=== PATIENT | female | born 1995 | race Two or more races ===

== ENCOUNTER 2021-04-05 04:26 | Emergency (ER) | payer OTHER ==
[~2021-04-05] VITALS: Ht 162.6 cm; Wt 54.4 kg
--- NOTE | 2021-04-05 04:36 | NUR ---
PT BIBFD AND PD FROM HOLDING CELL C/O BIZARRE BEHAVIOR AND FACIAL PAIN. PER REPORT, PT STARTED PUNCHING HERSELF ON THE FACE. PT ALERT AND AWAKE, DENIES SI/HI. SAFETY PRECAUTIONS IMPLEMENTED. PT CONNECTED TO THE MONITOR AND POX
--- NOTE | 2021-04-05 04:36 | NUR ---
Note undone in EDM - 04/05/21 at 0444 by ALEJANDRA PATIENT CAME TO THE ER [facility] C/O PSYCHOSIS. PER LAUREL REPORT, PATIENT WAS AT HOME WHEN SHE HAD THROWN A COOKING FERNANDO AT A BOYFRIEND AND THEN PUNCHED HERSELF IN THE FACE. LAUREL STATES THAT THEY WILL PUT HER ON A HOLD FOR DANGER TO SELF. PATIENT HAS DRY BLOOD ON HER NOSE. PATIENT IS ALERT AND ORIENTED x4. PATIENT IS CALM AND COOPERATIVE. PATIENT DENIES SUICIDAL IDEATION AND DENIES HOMICIDAL INTENT. PATIENT IS BREATHING EVENLY AND UNLABORED ON ROOM AIR. CONNECTED TO THE MONITOR. SIDE RAILS ARE UP FOR SAFETY. CALL LIGHT IS WITHIN REACH. SITTER IS AT BEDSIDE.
--- NOTE | 2021-04-05 04:36 | NUR ---
PATIENT CAME TO THE ER [facility] C/O ANXIETY. PER LAUREL REPORT, PATIENT WAS AT HOME WHEN SHE HAD THROWN A COOKING FERNANDO AT A BOYFRIEND AND THEN PUNCHED HERSELF IN THE FACE. LAUREL STATES THAT THEY WILL PUT HER ON A HOLD FOR DANGER TO SELF. PATIENT HAS DRY BLOOD ON HER NOSE. PATIENT IS ALERT AND ORIENTED x4. PATIENT IS CALM AND COOPERATIVE. PATIENT DENIES SUICIDAL IDEATION AND DENIES HOMICIDAL INTENT. PATIENT IS BREATHING EVENLY AND UNLABORED ON ROOM AIR. CONNECTED TO THE MONITOR. SIDE RAILS ARE UP FOR SAFETY. CALL LIGHT IS WITHIN REACH. SITTER IS AT BEDSIDE.
[2021-04-05 06:23] LABS: BILIRUBIN,URINE Negative (NEGATIVE); COLOR,URINE YELLOW (YELLOW); LEUKOCYTE ESTERASE ,URINE Negative (NEGATIVE); NITRITE, URINE Negative (NEGATIVE); PH,URINE 5.5 (5.0-8.0); PROTEIN,URINE Negative (NEGATIVE); UGLUCOSE Negative (NEGATIVE); UROBILINOGEN,URINE 0.2 EU/dL (0.2)
--- NOTE | 2021-04-05 06:23 | NUR ---
PAGED REJI FOR PT IN BED 14 AT 0520. NO ANSWER. AWAITING CALL BACK.
[2021-04-05 06:33] LABS: BASOPHILS % (AUTO) 0.2 % (0.0-2.0); EOSINOPHILS % (AUTO) 0.2 % (0.0-6.0); HEMATOCRIT 39 % (33-45); HEMOGLOBIN 12.8 g/dL (11.5-14.8); LYMPHOCYTES # (AUTO) 0.9 K/uL (0.8-4.8); LYMPHOCYTES % (AUTO) 10.1 % (20.0-44.0); MEAN CORPUSCULAR HGB CONC 33 g/dl (31.0-36.0); MEAN CORPUSCULAR VOLUME 97 fL (82-100); MONOCYTES # (AUTO) 0.4 K/uL (0.1-1.30); MONOCYTES % (AUTO) 4.9 % (2.0-12.0); NEUTROPHILS # (AUTO) 7.5 K/uL (1.8-8.9); NEUTROPHILS % (AUTO) 84.6 % (43.0-81.0); PLATELET COUNT (AUTO) 235 K/uL (150-450); RED BLOOD CELL COUNT(AUTO) 3.97 MIL/uL (4.0-5.2); WHITE BLOOD COUNT (AUTO) 8.9 K/uL (4.3-11.0)
[2021-04-05 06:47] LABS: BACTERIA,URINE None seen /HPF (None Seen); SQUAMOUS EPITHELIAL CELL,UR Few /HPF (None Seen); WBC,URINE NONE SEEN /HPF (0-3)
[2021-04-05 07:22] LABS: CALCIUM, SERUM 8.9 mg/dL (8.5-10.1); CARBON DIOXIDE 23 mmol/L (21-32); CHLORIDE 109 mmol/L (98-107); CREATININE 0.6 mg/dL (0.6-1.3); GLUCOSE 116 mg/dL (74-106); POTASSIUM 3.8 mmol/L (3.5-5.1); SODIUM SERUM 142 mmol/L (136-145); UREA NITROGEN, BLOOD 12 mg/dL (7-18)
[2021-04-05 07:26] LABS: ALANINE AMINOTRANSFERASE 24 U/L (12-78); ALBUMIN 3.7 g/dL (3.4-5.0); ALKALINE PHOSPHATASE 102 U/L (46-116); ASPARTATE AMINOTRANSFERASE 12 U/L (15-37); BILIRUBIN,DIRECT 0.1 mg/dL (0.0-0.2); BILIRUBIN,TOTAL 0.3 mg/dL (0.2-1.0); TOTAL PROTEIN, SERUM 6.9 g/dL (6.4-8.2)
[2021-04-05 07:28] LABS: ACETAMINOPHEN < 10 ug/ml (10-30); ALCOHOL, BLOOD < 3 mg/dL (0-0)
--- NOTE | 2021-04-05 11:16 | NUR ---
ART CALLED [phone]
--- NOTE | 2021-04-05 12:56 | NUR ---
SEEN AND EVALUATED BY DANIEL BENJAMIN. PT OIS MEDICALLY AND PSYCH CLEARED, HOLD BROKEN BY DANIEL. PT IS AAOX3, PT STATES WILL GO HOME TO HER FATHER. DISCHARGED IN STABLE CONDITION.
[2021-04-05 12:58] VITALS: BP 115/70
== END 2021-04-05 12:58 | disposition home or self-care (01) ==
LOC: ER 04:28
DX: S00.31XA Abrasion of nose, initial encounter (principal); F12.10 Cannabis abuse, uncomplicated; Y08.89XA Assault by other specified means, initial encounter; Y93.89 Activity, other specified; Y92.89 Other specified places as the place of occurrence of the external cause; Y99.8 Other external cause status
CPT/HCPCS: 36415; 80048-TC; 80076-TC; 81001; 84703-TC; 85025-TC; G0480